=== PATIENT | female | born 1965 | race Caucasian/White ===

== ENCOUNTER 2016-03-14 10:47 | Emergency (ER) | payer BC | END 2016-03-14 11:07 | disposition left against medical advice (07) | LOC: UCEAST 10:47 | DX: Z53.21 Procedure and treatment not carried out due to patient leaving prior to being seen by health care provider (principal); M54.9 Dorsalgia, unspecified ==

== ENCOUNTER 2016-03-14 11:30 | Emergency (ER) | payer BC ==
[2016-03-14] MEDS ORDERED: Ketorolac INJ* 60 MG/2 ML VIAL IM ONE (12:16)
[2016-03-14] MEDS ORDERED: Cyclobenzaprine TAB* 10 MG PO ONE (12:16)
--- NOTE | 2016-03-14 13:00 | ED ---
Back Pain - HPI Summary HPI Summary: Patient presents with five days of back pain that began without known incident. The only thing she can think of, is that her big dog jumped on her and turned suddenly, but she does not relate that to a sudden onset of pain. Her pain radiates down her left leg and can make the bottom of her feet tingle. She had some similar symptoms on the right but they resolved. She denies numbness, incontinence of urine or stool, or trouble ambulating. She denies previous back injury or similar incidents. She has tried OTC medicine without relief. Heat helps temporarily. Her pain has gotten progressively worse over the week and can hurt when she coughs or sneezes. - History of Current Complaint Chief Complaint: EDBackInjuryPain Stated Complaint: LOWER BACK PAIN Time Seen by Provider: 03/14/16 11:35 Hx Obtained From: Patient, Family/Online Marketing Coordinator Hx Last Menstrual Period: post parker Onset/Duration: Gradual Onset Onset/Duration: Started Days Ago - 5 Timing: Constant Back Pain Location: Radiates To - left foot Severity Initially: Mild Severity Currently: Severe Pain Intensity: 8 Character: Sharp, Aching, Burning Aggravating Symptom(s): Movement Alleviating Symptom(s): Nothing Associated Signs And Symptoms: Positive: Tingling - bottom of left foot, Pain with Weight Bearing. Negative: Bladder Incontinence, Bowel Incontinence - Allergies/Home Medications Allergies/Adverse Reactions: Allergies Allergy/AdvReac Type Severity Reaction Status Date / Time Penicillins Allergy Unknown See Comment Verified 02/27/16 14:13 Amoxicillin Allergy Rash Verified 02/27/16 14:13 Kiwi Extract Allergy Difficulty Verified 02/27/16 14:13 Swallowing Ramelteon [From Rozerem] Allergy Headache Verified 02/27/16 14:13 Shellfish-derived Products Allergy Difficulty Verified 02/27/16 14:13 Breathing/Wheezing Sulfa Drugs Allergy Unknown Verified 02/27/16 14:13 Reaction Details PMH/Surg Hx/FS Hx/Imm Hx Endocrine/Hematology History: Reports: Hx Diabetes Cardiovascular History: Reports: Hx Hypertension Denies: Hx Pacemaker/ICD Respiratory History: Reports: Hx Asthma, Hx Chronic Obstructive Pulmonary Disease (COPD) History: Denies: Hx Renal Disease Musculoskeletal History: Reports: Other Musculoskeletal History - fibromyalgia, right shoulder pain Denies: Hx Arthritis, Hx Osteoporosis, Hx Scoliosis Sensory History: Denies: Hx Hearing Aid Neurological History: Reports: Hx Headaches, Hx Seizures, Other Neuro Impairments/Disorders - FIBROMYALIGIA Psychiatric History: Reports: Hx Anxiety - Some anxiety present. Denies depression., Hx Panic Disorder - ANXIETY - Cancer History Hx Chemotherapy: No Hx Radiation Therapy: No - Surgical History Surgery Procedure, Year, and Place: choly/appy/right knee x2/right carpal tunnel /hysterectomy Infectious Disease History: No Infectious Disease History: Denies: Hx Clostridium Difficile, Hx Hepatitis, Hx Human Immunodeficiency Virus (HIV), Hx of Known/Suspected MRSA, Hx Shingles, Hx Tuberculosis, Hx Known/ Suspected VRE, Hx Known/Suspected VRSA, History Other Infectious Disease, Traveled Outside the [place] in Last 30 Days - Family History Known Family History: Positive: None, Other - Positive breast CA - Social History Occupation: Unemployed Lives: With Family Alcohol Use: None Hx Substance Use: No Substance Use Type: Reports: None Hx Tobacco Use: Yes Smoking Status (MU): Former Smoker Type: Cigarettes Length of Time of Smoking/Using Tobacco: 34 years Have You Smoked in the Last Year: No Review of Systems Negative: Fever, Chills Negative: Chest Pain Negative: Shortness Of Breath Negative: Abdominal Pain Positive: no symptoms reported Positive: Myalgia. Negative: Edema Positive: Paresthesia. Negative: Headache, Weakness, Numbness All Other Systems Reviewed And Are Negative: Yes Physical Exam Triage Information Reviewed: Yes Vital Signs On Initial Exam: Initial Vitals Temp Pulse Resp BP Pulse Ox 96.8 F 72 16 154/90 98 03/14/16 11:31 03/14/16 11:31 03/14/16 11:31 03/14/16 11:31 03/14/16 11:31 Vital Signs Reviewed: Yes Appearance: Positive: Well-Appearing, Pain Distress, Obese Skin: Positive: Warm, Skin Color Reflects Adequate Perfusion, Dry, Soft Head/Face: Positive: Normal Head/Face Inspection Eyes: Positive: EOMI, DANNIELLE, Conjunctiva Clear ENT: Positive: Hearing grossly normal Neck: Positive: Supple, Nontender, No Lymphadenopathy Respiratory/Lung Sounds: Positive: Breath Sounds Present Cardiovascular: Positive: RRR Musculoskeletal: Positive: Strength/ROM Intact - movement with pain, but 5/5 strength against resistance at bilateral ankles, Pain @ - TTP bilateral SI joints, and lumbar spine. Negative: Suzanne Sign Left, Suzanne Sign Right Neurological: Positive: Sensory/Motor Intact, Alert, Oriented to Person Place, Time, NV Bundle Intact Distally, Abnormal Gait Psychiatric: Positive: Affect/Mood Appropriate AVPU Assessment: Alert Diagnostics - Vital Signs Vital Signs Temp Pulse Resp BP Pulse Ox 03/14/16 11:31 96.8 F 72 16 154/90 98 - Laboratory Lab Statement: Any lab studies that have been ordered have been reviewed, and results considered in the medical decision making process. - Radiology No standard instances Xray Interpretation: No Acute Changes Radiology Interpretation Completed By: Radiologist Back Pain Course/Dx - Diagnoses Differential Diagnosis/HQI/PQRI: Positive: Aneurysm, Cauda Equina Syndrome, Compressive Cord Syndrome, Herniated Disc, Strain, Sprain Provider Diagnoses: Low back strain Discharge - Discharge Plan Condition: Stable Disposition: HOME Prescriptions: Cyclobenzaprine TAB* [Flexeril TAB*] 10 mg PO TID PRN #15 tab PRN Reason: Pain oxyCODONE/Acetamin 5/325 MG* [Percocet 5/325 TAB*] 1 tab PO Q6H PRN #16 tab MDD 4 PRN Reason: Pain Patient Education Materials: Acute Low Back Pain (ED) Referrals: Daniel Kelly MD [Primary Care Provider] - Additional Instructions: Please use the medication provided in combination with head and rest. Follow-up with your PCP as scheduled on Thursday to discuss further treatment options. Return to the emergency department if your symptoms worsen.
[2016-03-14] MEDS ORDERED: oxyCODONE/Acetamin 5/325 MG* TAB PO ONE (13:14)
--- NOTE | 2016-03-14 13:55 | RAD ---
Indication: Low back pain radiating down the RIGHT leg into the foot. Decreased range of motion. History of fibromyalgia. Comparison: August 13, 2015 Technique: AP, lateral, and oblique views lumbar sacral spine. Report: Alignment is anatomic. No cortical disruption or trabecular impaction to indicate a vertebral body fracture. Oblique views without evidence for spondylolysis. Minimal osteophytosis. Mild L5-S1 disc space narrowing. Multilevel facet joint osteoarthritis most prominent at L5-S1. Unremarkable paraspinal soft tissue contours. Gallbladder fossa level surgical clips and pelvic phleboliths noted. IMPRESSION: Degenerative spondylosis and facet joint osteoarthritis most prominent at L5-S1 without significant interval change.
[2016-03-14 15:13] VITALS: BP 104/50
== END 2016-03-14 15:11 | disposition home or self-care (01) ==
LOC: ED 11:30
DX: S39.012A Strain of muscle, fascia and tendon of lower back, initial encounter (principal); M54.9 Dorsalgia, unspecified; R20.9 Unspecified disturbances of skin sensation; X50.9XXA Other and unspecified overexertion or strenuous movements or postures, initial encounter; X50.0XXA Overexertion from strenuous movement or load, initial encounter; Y93.9 Activity, unspecified; Y92.9 Unspecified place or not applicable; Y99.9 Unspecified external cause status
CPT/HCPCS: 72110; 96372; 99282; A9270-GY; J1885

== ENCOUNTER 2016-06-12 16:08 | Emergency (ER) | payer BC ==
[2016-06-12 16:41] VITALS: BP 143/93
--- NOTE | 2016-06-12 19:25 | ED ---
Ava Santoyo Alok, scribed for Hosea Garcia MD on 06/12/16 at 1658 . Progress - Progress Note Progress Note: Went to evaluate Cat-Call sent to ED for pseudo-seizure during MRI. Pt has no complaints and does not want to be seen by a physician. EKG unchanged from 2016 MRI shows negative results Pt refuses to be seen and will return home. - EKG/XRAY/CT EKG: NSR - 81 bpm Comments: Unchanged from 2016 Course/Dx - Course Course Of Treatment: Pt refuses to be seen and will return home. - Diagnoses Provider Diagnoses: Patient left without being seen The documentation as recorded by the Ava burton Alok accurately reflects the service I personally performed and the decisions made by me, Hosea Garcia MD.
== END 2016-06-12 16:49 | disposition left against medical advice (07) ==
LOC: ED 16:08
DX: R55 Syncope and collapse (principal); Z53.21 Procedure and treatment not carried out due to patient leaving prior to being seen by health care provider
CPT/HCPCS: 93005

== ENCOUNTER 2016-11-11 09:56 | Emergency (ER) | payer SELFPAY ==
[2016-11-11 10:11] VITALS: BP 158/104
--- NOTE | 2016-11-11 11:08 | RAD ---
Indication: RIGHT shoulder and clavicle pain following injury this morning. Comparison: April 12, 2009 radiographs. Technique: Internal rotation AP, external rotation Grashey, scapular Y, axillary views RIGHT shoulder. AP and cephalad oblique AP views of the RIGHT clavicle. Report: Incidental small bilateral C7 cervical ribs. Normal acromioclavicular and glenohumeral joint alignment. Unremarkable sternoclavicular joint alignment. Negative for fracture at the clavicle or shoulder. Mild osteophytosis and subchondral sclerosis and cystic change at the acromioclavicular joint. Negative for stigmata of calcific tendinopathy. Unremarkable soft tissue contours. IMPRESSION: 1. No radiographic traumatic injury of the RIGHT clavicle or shoulder evident. 2. Mild AC joint osteoarthritis.
--- NOTE | 2016-11-11 13:12 | UC ---
Wu Santoyo Angela, scribed for Anais Moseley MD on 11/11/16 at 1036 . Upper Extremity HPI - HPI Summary HPI Summary: This pt is a 51 y/o female presenting to [facility] c/o right shoulder pain s/p injury this morning. Pt reports she went to work today at [employer] and had to move boxes. She notes a box fell onto her, hitting her shoulder and the box got stopped by the door frame. She notes she has arthritis on her right shoulder. Pt states there is decreased ROM of right shoulder. She has taken Ibuprofen for the pain, last dose was today at 0815. - History of Current Complaint Chief Complaint: UCUpperExtremity Stated Complaint: SHOULDER INJURY Time Seen by Provider: 11/11/16 10:28 Hx Obtained From: Patient Hx Last Menstrual Period: post parker Onset/Duration: Sudden Onset - s/p injury Location Of Pain: Is Discrete @ - right shoulder Aggravating Factor(s): Movement, Flexion, Extension Alleviating Factor(s): Nothing Associated Signs And Symptoms: Positive: Redness - Allergies/Home Medications Allergies/Adverse Reactions: Allergies Allergy/AdvReac Type Severity Reaction Status Date / Time Penicillins Allergy Unknown Hives Verified 11/11/16 10:11 Amoxicillin Allergy Hives Verified 11/11/16 10:11 Kiwi Extract Allergy Throat Verified 11/11/16 10:11 closes Ramelteon [From Rozerem] Allergy Headache Verified 11/11/16 10:11 Shellfish-derived Products Allergy Throat Verified 11/11/16 10:11 closes Sulfa Drugs Allergy Hives Verified 11/11/16 10:11 PMH/Surg Hx/FS Hx/Imm Hx Endocrine History: Diabetes - type 2 Cardiovascular History: Hypertension Respiratory History: COPD, Asthma - Surgical History Surgical History: Yes Surgery Procedure, Year, and Place: choly/appy/right knee x2/right carpal tunnel /hysterectomy - Family History Known Family History: Positive: Other - Positive breast CA - Social History Alcohol Use: Rare Substance Use Type: None Smoking Status (MU): Former Smoker Type: Cigarettes Length of Time of Smoking/Using Tobacco: 34 years Have You Smoked in the Last Year: No When Did the Patient Quit Smoking/Using Tobacco: 2011 Review of Systems Constitutional: Negative Skin: Negative Eyes: Negative ENT: Negative Respiratory: Negative Cardiovascular: Negative Genitourinary: Negative Motor: Decreased ROM - of right shoulder Neurovascular: Negative Musculoskeletal: Other: - rghht shoulder pain Neurological: Negative All Other Systems Reviewed And Are Negative: Yes Physical Exam Triage Information Reviewed: Yes Appearance: Well-Nourished Vital Signs: Initial Vital Signs Temp 99.6 F 11/11/16 10:08 Pulse 83 11/11/16 10:08 Resp 18 11/11/16 10:08 BP 158/104 11/11/16 10:08 Pulse Ox 99 11/11/16 10:08 Vital Signs Reviewed: Yes Eye Exam: Normal ENT Exam: Normal Respiratory Exam: Normal Respiratory: Positive: Chest non-tender, Lungs clear, Normal breath sounds, No respiratory distress, No accessory muscle use Cardiovascular Exam: Normal Cardiovascular: Positive: RRR, No Murmur, Pulses Normal, Brisk Capillary Refill Abdominal Exam: Normal Abdomen Description: Positive: Nontender, No Organomegaly, Soft Bowel Sounds: Positive: Present Musculoskeletal: Positive: ROM Limited @ - right shoulder, Other: - Right clavicle: Neurological Exam: Normal - nonfocal, grossly intact Psychological Exam: Normal - conversing easily and appropriately Skin Exam: Normal - no visible or reported rash Diagnostics - Radiology Right Shoulder XR Xray Interpretation: Positive (See Comments) - IMPRESSION: 1. No radiographic traumatic injury of the RIGHT clavicle or shoulder evident. 2. Mild AC joint osteoarthritis. ED physician has reviewed this radiology report and agrees. Radiology Interpretation Completed By: Radiologist Right Clavicle XR Xray Interpretation: Positive (See Comments) - IMPRESSION: 1. No radiographic traumatic injury of the RIGHT clavicle or shoulder evident. 2. Mild AC joint osteoarthritis. ED physician has reviewed this radiology report and agrees. Radiology Interpretation Completed By: Radiologist Upper Extremity Course/Dx - Course Course Of Treatment: Pt declined analgesics at this time, will consider at time of discharge. Pt was given a sling for comfort. I-stop, REPAIR SPECIALIST reference #: [id number]. Reviewed xrays / xray report. Reviewed report with pt. No fx. + arthritis (see report). Suspect deep tissue (bony) contusion, with concomitant sprain (AC). Referral to orthopedics x 2 weeks. Reviewed and discussed analgesia / nsaid. Denies hx addiction. D/w pt usual narc talk. Questions as posed answered to the best of my ability. - Differential Dx/Diagnosis Provider Diagnoses: R shoulder contusion and sprain. Deep tissue contusion R shoulder Discharge - Discharge Plan Condition: Stable Disposition: HOME Prescriptions: HYDROcodone/ACETAMIN 5-325 MG* [Madison 5-325 TAB*] 1 tab PO Q6H PRN #16 tab MDD 4 PRN Reason: Pain Naproxen [Naproxen 500 mg] 500 mg PO Q12H PRN #30 tab PRN Reason: pain Patient Education Materials: Acromioclavicular Separation (ED), Osteoarthritis (ED), Contusion in Adults (ED) Referrals: Daniel Kelly MD [Primary Care Provider] - Additional Instructions: Shoulder sling as needed for comfort. Recommend during the day at least for the next 3 days, you may need to use the sling longer depending on your pain and range of motion. Follow up cardiovascular disease specialist in 2 weeks. Please call to schedule appointment. Seek medical attention for worse or new problems in the meantime. Follow up Dr. Kelly per routine. You do have joint arthritis, I suspect concomitant possible AC sprain. ( acromial clavicular = AC) The documentation as recorded by the Wu burton Angela accurately reflects the service I personally performed and the decisions made by me, Anais Moseley MD.
== END 2016-11-11 11:58 | disposition home or self-care (01) ==
LOC: UCEAST 09:56
DX: S43.401A Unspecified sprain of right shoulder joint, initial encounter (principal); S40.012A Contusion of left shoulder, initial encounter; W20.8XXA Other cause of strike by thrown, projected or falling object, initial encounter; Y93.89 Activity, other specified; Y92.9 Unspecified place or not applicable; Y99.0 Civilian activity done for income or pay
CPT/HCPCS: 99213; G0463

== ENCOUNTER 2017-01-20 06:42 | Inpatient (IN) | payer BC ==
[~2017-01-20 06:42] MED LIST: Buffered Lidocaine 0.9% SYRIN* 5 ML/SYR SYRINGE INTRADERM ONE; Buffered Lidocaine 0.9% SYRIN* 5 ML/SYR SYRINGE ONE; Ciprofloxacin 400MG IVPREMIX(* 400 MG/200 ML BAG ONE; Clindamycin 900 MG IVPREMIX(* 900 MG/50 ML SDV IV ONE; Dexamethasone IV* 4 MG/ML 1 ML (4 MG) IV SLOW PU ONE; Dexamethasone IV* 4 MG/ML 1 ML (4 MG) ONE; Famotidine IV* 10 MG/ML 2 ML (20 mg) IV ONE; Famotidine IV* 10 MG/ML 2 ML (20 mg) ONE; Heparin VIAL(*) 5000 UNITS/ML VIAL (FIVE THOUSAND) ONE; Scopolamine 1.5 mg* PATCH ONE; Scopolamine 1.5 mg* PATCH TRANSDERM ONE
[2017-01-20] MEDS ORDERED: Methylene Blue 0.5 %* 50 MG/10 ML AMP IV ONE (07:13)
[2017-01-20] MEDS ORDERED: Bupivacaine 0.25% SDV* 30 ML ONE (07:13)
[2017-01-20] MEDS ORDERED: Midazolam* 1 MG/ML 2 ML VIAL (2 MG) ONE ×2 (07:42→08:05)
[2017-01-20] MEDS ORDERED: fentaNYL* 50 MCG/ML 2 ML VIAL (100 MCG VIAL) ONE ×2 (07:42→07:57)
[2017-01-20] MEDS ORDERED: Propofol* 500 MG/50 ML BTL ONE ×3 (07:47→09:22)
[2017-01-20] MEDS ORDERED: Lidocaine 2% PF * 5 ML VIAL ONE (07:47)
[2017-01-20] MEDS ORDERED: Rocuronium* 10 MG/ML VIAL ONE (07:51)
[2017-01-20] MEDS ORDERED: Remifentanil* 2 MG VIAL ONE (07:56)
[2017-01-20] MEDS ORDERED: Morphine INJ* 2 MG/ML 1 ML CARPUJECT IV PRN (08:36)
[2017-01-20] MEDS ORDERED: PROCHLORPERAZINE INJ 5 MG/ML 2 ML VIAL IV PRN (08:36)
[2017-01-20] MEDS ORDERED: fentaNYL* 50 MCG/ML 2 ML VIAL (100 MCG VIAL) IV PRN (08:36)
[2017-01-20] MEDS ORDERED: Acetaminophen IV 1GM/100ML * 1,000 MG/100 ML VIAL IVPB ONE (08:36)
[2017-01-20] MEDS ORDERED: EPHEDrine (Pressors)* 50 MG/ML VIAL ONE (09:11)
[2017-01-20] MEDS ORDERED: Ondansetron INJ* 2 MG/ML VIAL ONE (09:49)
[2017-01-20] MEDS ORDERED: Acetaminophen IV 1GM/100ML * 100 ML ONE (10:04)
[2017-01-20] MEDS ORDERED: Ondansetron INJ* 2 MG/ML VIAL IV PRN (10:10)
[2017-01-20] MEDS ORDERED: Glycopyrrolate IV* 0.2 MG/ML 1 ML VIAL ONE (10:11)
[2017-01-20] MEDS ORDERED: Neostigmine Methylsulfate* 2 MG/2 ML SYRINGE ONE (10:11)
[2017-01-20] MEDS ORDERED: Fluticasone HFA 220 mcg(NF) MDI INH PRN (10:15)
[2017-01-20] MEDS ORDERED: Spiriva Inhaler DEVICE* 1 EACH DEVICE INH PRN (10:15)
[2017-01-20] MEDS ORDERED: Dextrose 50% Syringe 50 ML* 25 GM/50 ML SYRINGE IV PUSH PRN (10:16)
--- NOTE | 2017-01-20 10:20 | PN ---
Progress Note - Progress Note Date of Service: 01/20/17 Note: Brief Operative Note: Pre-op: Morbid obesity Post-op: Same Procedure: Laparoscopic John-en-Y gastric bypass Surgeon: Dr. Arellano Sports Physiotherapist: DENZEL Hunter Tamara: GETA Fluids: NS 1500 cc EBL: Minimal Catheter: Pemberton to gravity Drain: None Specimen: None Findings: See dictated op note
[2017-01-20] MEDS ORDERED: Propofol* 10 MG/ML 20 ML BTL IV PUSH ONE (10:31)
[2017-01-20] MEDS ORDERED: Ketorolac INJ* 30 MG/ML 1 ML VIAL IV PUSH ONE (11:09)
[2017-01-20] MEDS ORDERED: Ketorolac INJ* 30 MG/ML 1 ML VIAL ONE (11:10)
[2017-01-20] MEDS: Insulin LISPRO* 1 UNITS UNIT SUBCUT SCH ×2 (13:30→18:45)
[2017-01-20] MEDS ORDERED: HYDROmorphone INJ* 2 MG/ML CARPUJECT SYRINGE ONE (14:33)
[2017-01-20] MEDS: HYDROmorphone INJ* 2 MG/ML CARPUJECT SYRINGE IV PRN ×3 (14:35→21:57)
[2017-01-20] MEDS ORDERED: Mometasone 220 MCG MDI INH PRN (14:47)
[2017-01-20] MEDS: Pantoprazole IV* 40 MG IV SCH (15:30)
[2017-01-20] MEDS: Ketorolac INJ* 30 MG/ML 1 ML VIAL IV PRN (17:44)
[2017-01-20] MEDS: Heparin VIAL(*) 5000 UNITS/ML VIAL (FIVE THOUSAND) SUBCUT SCH (22:03)
[2017-01-21] MEDS: Insulin LISPRO* 1 UNITS UNIT SUBCUT SCH ×5 (00:02→23:57)
[2017-01-21] MEDS: Heparin VIAL(*) 5000 UNITS/ML VIAL (FIVE THOUSAND) SUBCUT SCH ×3 (05:41→22:16)
[2017-01-21] MEDS: HYDROmorphone INJ* 2 MG/ML CARPUJECT SYRINGE IV PRN (06:51)
--- NOTE | 2017-01-21 08:23 | SURGPN ---
Subjective - Introduction -: Admitted on: 01/20/2017 Patient's surgical date: 01/20/2017 Procedure completed: 01/20/2017 - Medications -: Active Medications Generic Name Dose Route Start Last Admin Trade Name Gregoria PRN Reason Stop Dose Admin Device 1 each 01/20/17 10:15 Tiotropium Inhaler Device* INH DAILY PRN WHEEZING Dextrose 12.5 gm 01/20/17 10:16 D50w Syringe 50 Ml* IV PUSH .FOR FS < 60 - SS PRN FS < 60 Heparin Sodium (Porcine) 5,000 units 01/20/17 22:00 01/21/17 05:41 Heparin Vial(*) SUBCUT 5,000 units Q8HR [facility] Administration Hydromorphone HCl 0.5 mg 01/20/17 10:10 01/21/17 06:51 Dilaudid Inj* IV 0.5 mg Q3H PRN Administration PAIN Potassium Chloride/Dextrose 1,000 mls @ 125 mls/hr 01/21/17 07:30 D5w 1/2 Ns Kcl 20 Meq 1000 Ml* IV PER RATE [facility] Insulin Human Lispro 0 units 01/20/17 12:00 01/21/17 05:42 Humalog* SUBCUT Not Given Q6HR [facility] Protocol Ketorolac Tromethamine 30 mg 01/20/17 10:10 01/20/17 17:44 Toradol Inj* IV 01/22/17 10:12 30 mg Q6H PRN Administration PAIN Mometasone Furoate 2 puff 01/20/17 14:47 Asmanex 220 Mcg Mdi * INH BID PRN SOB/WHEEZING Ondansetron HCl 4 mg 01/20/17 10:10 01/20/17 15:35 Zofran Inj* IV 4 mg Q6H PRN Administration NAUSEA/VOMITING Pantoprazole Sodium 40 mg 01/20/17 15:00 01/20/17 15:30 Protonix Iv* IV 40 mg Q24H [facility] Administration Pharmacy Profile Note 1 note 01/23/17 06:00 Scopolamine Patch Remove* PATCH OFF 01/23/17 06:01 ONCE ONE - Comments Comments: Reports doing well, minimal incisional pain. Denies nausea, vomiting, fever or chills. No chest pain or SOB. Objective - Objective -: Laying on bed, awake and alert, appears comfortable and in NAD. - Intake and Output -: Intake & Output 01/19/17 01/20/17 01/21/17 01/22/17 06:59 06:59 06:59 06:59 Intake Total 3901 Output Total 1934 Balance 1966 Weight 190 lb 200 lb 9.93 oz Intake: IV Fluids 3901 LR 3901 Output: Mathis 1835 Estimated Blood Loss 100 Surgical Physical Exam - Comments -: VSS, afebrile, no tachycardia Lungs CTA bilat. Heart RRR, no murmurs. Abdomen soft, NT, ND. Incisions covered with dressings, clean and dry. No ecchymosis, erythema or swelling. Mathis with clear urine, I/Os reviewed. Ext. without edema Assessment and Plan - Assessment -: A 51 y/o female, POD#1, s/p laparoscopic RYGB, doing well. - Plan Additional Comments: D/C mathis catheter Ambulate as tolerated Stage I bariatric clear liquids Transfer to [facility] Likely home in AM 01/22
[2017-01-21] MEDS ORDERED: Acetaminophen ADULT LIQ* 650 MG/20.3 ML UDC PO PRN (08:30)
--- NOTE | 2017-01-21 08:48 | OP ---
CC: Daniel Kelly MD * DATE OF OPERATION: 01/20/17 - ROOM #ICU-09 DATE OF : 63 SURGEON: Kalin Arellano MD. SECTION CREWS ACTIVITIES CLERK: DENZEL Rao. ANESTHESIOLOGIST: Diego Pineda MD. ANESTHESIA: General endotracheal. PRE-OP DIAGNOSIS: Morbid obesity. POST-OP DIAGNOSIS: Morbid obesity. OPERATIVE PROCEDURE: Laparoscopic John-en-Y gastric bypass. ESTIMATED BLOOD LOSS: Minimal. IV FLUIDS: Crystalloids. SPECIMENS: None. DRAINS: None. COMPLICATIONS: None. COUNTS: The instrument, needle, and sponge counts correct. DESCRIPTION OF PROCEDURE: The patient was brought to the operating room and placed on the table supine. Sequential compression devices were placed on both lower extremities. General anesthesia was administered. A Pemberton catheter was placed. Appropriate antibiotics were given. The patient was positioned and padded appropriately and then prepped and draped in the usual sterile fashion. A time-out was performed. Local anesthetic was infiltrated into the skin and soft tissue prior to making each incision. Entry to the abdomen was through a left upper quadrant incision accommodating a 12-mm optical trocar. After accessing the peritoneal cavity, carbon dioxide was insufflated to a pressure of 15 mmHg. Under direct visualization, 5-mm trocars were placed in the left upper quadrant laterally and then LigaSure was used to take down the adhesions of omentum that were to the midline and right upper quadrant as the patient had a prior open cholecystectomy. After completing the adhesiolysis, 12-mm bladeless trocar was placed in the supraumbilical midline and the second placed in the right upper quadrant. A 5-mm trocar was placed in the right upper quadrant medially and a Efrain liver retractor was placed percutaneously in the subxiphoid position and used to elevate the left lobe of the liver. Gastric anatomy appeared normal. The gastric cardia was mobilized away from the left jeremy of the diaphragm using blunt dissection with a LigaSure. Next, a perigastric dissection was undertaken on the lesser curvature. The lesser sac was entered and transverse firings of the Endo RACHAEL stapler was performed with vidal cartridge. The gastric pouch was then completed with vertical firings headed towards the angle of His. After completing the division of the stomach pouch, staple lines were inspected and noted to be hemostatic. Next, the omentum was freed from the lower abdomen by LigaSure, which was used to divide the adhesions in the lower midline. The omentum was retracted superiorly along with the transverse colon and the ligament of Treitz was identified. The jejunum was measured out 40 to 50 cm and the loop of jejunum was sutured to the left side of the gastric pouch with 2-0 silk in interrupted fashion. Next, the gastrojejunal anastomosis was performed using the Endo RACHAEL stapler with 30 mm vidal cartridge and the common enterotomy was run closed with 3-0 PDS, with the closure performed over a 36-Belarusian gastric lavage tube. To complete the anastomosis, the omega loop was divided to the left of the anastomosis and then the anastomosis was tested with methylene blue dye solution instilled through the orogastric tube. No leak was identified. Next, the John limb was measured out for 75 cm and at this point a functional end-to-side jejunojejunostomy was created using the Endo RACHAEL stapler with a 60-mm vidal cartridge. The common enterotomy was run closed with 3-0 PDS. An anti-obstruction sutures of 3-0 silk were placed proximally and distally to the anastomosis. The mesenteric defect at this site was closed with 3-0 silk in a running locking fashion. Inspection revealed hemostasis to be excellent. The bowel was noted to be in proper position. The operation was concluded. The liver retractor and ports were removed under direct visualization. Carbon dioxide was released. The incisions were closed with pearl. The dressings were applied. The patient was extubated uneventfully, transferred to Recovery in stable condition. [id number]/[facility] #: [id number] [facility]QUARE HOSPITALJulio Cesar
--- NOTE | 2017-01-21 09:13 | PN ---
Progress Note - Progress Note Date of Service: 01/21/17 Note: She reports feeling well. Pain is well controlled, she just started clears, and she is going to transfer to [facility]. We discussed surgical findings. Cirrhotic appearance of the liver explained and she notes she had a biopsy 20 years ago that showed fatty liver. I explained she will be referred to liver specialist for a follow up, but this is not urgent. Vital Signs Temp 97.6 F 01/21/17 04:00 Pulse 69 01/21/17 09:01 Resp 22 01/21/17 09:01 BP 119/88 01/21/17 09:01 Pulse Ox 96 01/21/17 09:01 Intake & Output 01/20/17 01/21/17 01/21/17 18:59 06:59 18:59 Intake Total 2100 1801 Output Total 435 1500 Balance 1665 301 Weight 200 lb 9.93 oz Intake: IV Fluids 2100 1801 LR 2100 1801 Output: Pemberton 335 1500 Estimated Blood Loss 100 Laboratory Results - last 24 hr 01/20/17 01/20/17 01/20/17 06:59 11:12 17:48 POC Glucose (mg/dL) 123 H 148 H 152 H 01/20/17 01/21/17 23:58 05:39 POC Glucose (mg/dL) 125 H 101 H A/P: s/p LRYGB; liver bx. POD#1. Doing well. Cont clears. Po meds. Home tomorrow.
[2017-01-21] MEDS: D5W 1/2 NS KCl 20 Meq 1000 ML* 1,000 ML IV SCH ×2 (10:33→18:30)
[2017-01-21] MEDS: Pantoprazole IV* 40 MG IV SCH (13:15)
[2017-01-21] MEDS: HYDROcodone/ACET. 7.5/325 LIQ* 15 ML UDC PO PRN (14:50)
[2017-01-21] MEDS: Ketorolac INJ* 30 MG/ML 1 ML VIAL IV PRN ×2 (14:52→19:52)
[2017-01-21] MEDS ORDERED: PARoxetine HCL TAB* 40 MG PO SCH (18:00)
[2017-01-22] MEDS: D5W 1/2 NS KCl 20 Meq 1000 ML* 1,000 ML IV SCH (02:28)
[2017-01-22] MEDS: HYDROcodone/ACET. 7.5/325 LIQ* 15 ML UDC PO PRN ×2 (02:29→09:43)
[2017-01-22] MEDS: Heparin VIAL(*) 5000 UNITS/ML VIAL (FIVE THOUSAND) SUBCUT SCH (05:41)
[2017-01-22] MEDS: Insulin LISPRO* 1 UNITS UNIT SUBCUT SCH (05:45)
[2017-01-22 07:38] VITALS: BP 127/68
--- NOTE | 2017-01-22 09:56 | PN ---
Progress Note - Progress Note Date of Service: 01/22/17 SOAP: Subjective: Pt seen and examined. Feels "better" than yesterday. No complaints. No nause , tolerating clears, positive flatus Objective: af vss UO great lungs clear abdo: soft/ ND/NT dressing removed. no redness no claf tenderness Assessment: POD2 RYGB, doing well Plan: d/c home f/u in office
[2017-01-23] MEDS ORDERED: Scopolamine PATCH Remove* 1 NOTE MISC PATCH OFF ONE (06:00)
== END 2017-01-22 11:00 | disposition home or self-care (01) | DRG 403 ==
LOC: AA 06:42 → SSU 13:13 → ICU 18:26 → SSU 01-21 10:31
PROVIDERS: ADMIT Surgery; ATTEND Surgery
PROC: 0D164ZA Bypass Stomach to Jejunum, Percutaneous Endoscopic Approach (ICD-10-PCS; principal; 2017-01-20 07:45)
DX: E66.01 Morbid (severe) obesity due to excess calories (principal); K76.0 Fatty (change of) liver, not elsewhere classified; E11.9 Type 2 diabetes mellitus without complications; G47.33 Obstructive sleep apnea (adult) (pediatric); J44.9 Chronic obstructive pulmonary disease, unspecified; E78.5 Hyperlipidemia, unspecified; I10 Essential (primary) hypertension; Z68.35 Body mass index [BMI] 35.0-35.9, adult
CPT/HCPCS: 43644; 88307; 88313; 94760; A9270-GY; C1776; J0744; J1100; J1170; J1644; J1885; J2250; J2405; J2704; J3010

== ENCOUNTER 2017-02-02 09:10 | Emergency (ER) | payer BC ==
[2017-02-02] MEDS ORDERED: Ondansetron ODT TAB* 4 MG PO ONE (09:50)
[2017-02-02] MEDS ORDERED: NS 0.9% 1000 ML* 1,000 ML IV ONE (09:50)
[2017-02-02] MEDS ORDERED: Morphine INJ* 4 MG/ML 1 ML CARPUJECT IV ONE (09:50)
[2017-02-02 10:09] LABS: Hematocrit 40 % (35-47); Hemoglobin 13.8 g/dl (12.0-16.0); Mean Corpuscular HGB Conc 35 g/dl (31-36); Mean Corpuscular Hemoglobin 30 pg (27-31); Mean Corpuscular Volume 86 fL (80-97); Mean Platelet Volume 9 um3 (7.4-10.4); Red Blood Count 4.67 10^6/ul (4.0-5.4); Red Cell Distribution Width 13 % (10.5-15)
[2017-02-02 10:23] LABS: Albumin 3.9 g/dL (3.2-5.2); BUN/Creatinine Ratio 26.2 (8-20); C Reactive Protein 5.28 mg/L (< 5.00); Calcium 9.8 mg/dL (8.6-10.3); EGFR African American 123.1 (>60); EGFR Non-African American 95.7 (>60); Globulin 2.8 g/dL (2-4); Potassium 3.9 mmol/L (3.5-5.0); Total Bilirubin 0.6 mg/dL (0.2-1.0); Total Protein 6.7 g/dL (6.4-8.9)
[2017-02-02] MEDS ORDERED: Iodixanol* (CONTRAST) 320 MG/ML 100 ML SDV IV ONE (10:52)
--- NOTE | 2017-02-02 12:28 | RAD ---
INDICATION: RIGHT upper quadrant pain radiating to the back. 13 days postop gastric bypass and liver biopsy. Post cholecystectomy, appendectomy, hysterectomy. COMPARISON: September 01, 2016 RIGHT upper quadrant ultrasound. March 06, [address] TECHNIQUE: Multidetector CT images were obtained from the lung bases to the ischial tuberosities with 100 mL Visipaque 320 IV and oral contrast. Multiplanar reformation. REPORT: Unremarkable visualized inferior thorax. Post cholecystectomy. Negative for biliary dilatation. 1.5 cm hypodense but denser than water lesion at the caudal aspect of the LEFT lateral hepatic segment. Unremarkable pancreas and spleen. Postsurgical change of John-en-Y gastric bypass with the John limb passing cephalad anterior to the transverse colon. Mild fluid distention of the excluded stomach without suspicious finding. No CT abnormality of the small bowel loops. Post appendectomy. Unremarkable largely decompressed colon. Negative for ascites, free air, hernias. Mild edema at the anterior abdominal wall trocar sites. Normal adrenal glands. Unremarkable kidneys with symmetric nephrograms and pyelograms. Unremarkable nondilated ureters and largely decompressed urinary bladder. Post hysterectomy. Unremarkable adnexal regions. Negative for lymphadenopathy. Normal diameter abdominal aorta and iliac arteries. Physiologic distention of the IVC. Negative for suspicious osseous lesions. IMPRESSION: 1. Noted 1.5 cm hypodense but denser than water lesion at the caudal aspect of the LEFT lateral hepatic segment is low suspicion based on small size. This may represent sequela of recent surgical hepatic biopsy. Correlate with procedural history. If the lesion remains unexplained after clinical correlation further assessment with targeted ultrasound would be suggested. 2. Postsurgical change of John-en-Y gastric bypass without visible complication. 3. Negative for ascites. 4. Negative for obstructive uropathy.
[2017-02-02] MEDS ORDERED: Ondansetron INJ* 2 MG/ML VIAL IV ONE (13:27)
[2017-02-02 13:49] VITALS: BP 116/64
[2017-02-02 13:55] LABS: Urine Bacteria Absent (Absent); Urine Bilirubin Negative (Negative); Urine Glucose Negative (Negative); Urine Nitrite Negative (Negative)
[2017-02-02] MEDS ORDERED: HYDROmorphone INJ* 2 MG/ML CARPUJECT SYRINGE IV SLOW PU ONE (14:02)
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
== END 2017-02-02 15:01 | disposition home or self-care (01) ==
LOC: ED 09:10
DX: R10.11 Right upper quadrant pain (principal); M79.602 Pain in left arm
CPT/HCPCS: 36415; 74177; 80053; 81003; 81015; 83690; 85025; 85610; 85730; 86140; 86850; 86900; 86901; 93005; 99283; A9270-GY; J1170; J2270; J2405; Q9967

== ENCOUNTER 2017-10-30 19:34 | Emergency (ER) | payer BC ==
[2017-10-30 19:42] VITALS: BP 131/74
== END 2017-10-30 19:58 | disposition left against medical advice (07) ==
LOC: ED 19:34
DX: E16.2 Hypoglycemia, unspecified (principal); Z53.21 Procedure and treatment not carried out due to patient leaving prior to being seen by health care provider

== ENCOUNTER 2017-11-16 08:54 | Observation (INO) | payer BC ==
[2017-11-16] MEDS ORDERED: Dextrose 50% Syringe 50 ML* 25 GM/50 ML SYRINGE IV PUSH ONE (09:42)
[2017-11-16] MEDS ORDERED: D5NS 0.9% 1000 ML BAG* 1,000 ML IV SCH (10:00)
[2017-11-16 10:24] LABS: EGFR Non-African American 129.1 (>60)
--- NOTE | 2017-11-16 11:22 | HP ---
CC: Dr. Kelly; Dr. Archibald; Dr. Valdivia * HISTORY AND PHYSICAL: DATE OF ADMISSION: 11/16/17 PRIMARY CARE PROVIDER: Dr. Kelly. ARMATURE BANDER: Dr. Archibald. SUPERVISOR POLICY CHANGE CLERKS: Dr. Valdivia. CHIEF COMPLAINT: Hypoglycemia and the patient needs to be n.p.o. for a scheduled endoscopy. HISTORY OF PRESENT ILLNESS: Chuck Jackson is a 52-year-old female with a history of obesity, status post gastric bypass surgery in December of 2016, who subsequently lost 80 pounds of weight and developed hypoglycemia. The patient would have sugars in the 40s in the middle of the night. For that, she was evaluated by Dr. Archibald. Dr. Archibald noted that the patient has had problems with eating and referred the patient for upper endoscopy. The patient is scheduled for upper endoscopy today with Dr. Valdivia but she needs to be n.p.o. for the procedure. There was a concern that the patient may be hypoglycemic while n.p.o. due to her history of hypoglycemia. The patient was advised to go for direct admission prior to the planned procedure. Today, in the morning, the patient presented for direct admission. She feels overall "weak," but she has no complaints of feeling cold or chills. No history of recent syncope. She did not check her sugars today in the morning, but when we checked it up on her arrival, her sugar was 64. She is going to be placed on observation prior to her endoscopy. Likely after the endoscopy and resumption of her regular diet, the patient will be able to be discharged today. PAST MEDICAL HISTORY: 1. History of gastric bypass surgery in 2017. 2. History of impaired gastric emptying in 2018. 3. History of cirrhosis of the liver diagnosed via biopsy in 2017. It is unknown the etiology of the cirrhosis. 4. History of COPD. 5. History of anxiety. 6. History of conversion disorder. 7. History of gastroesophageal reflux disease. 8. History of mild cognitive disorder. 9. History of diabetes, type 2, that resolved after the patient's gastric bypass. 10. History of hypertension that resolved after the patient's gastric bypass. MEDICATIONS: At home, include: 1. Vitamin B12 of 1000 mcg daily. 2. Flovent 220 mcg 1 inhalation twice a day. 3. Lorazepam 0.5 mg on a p.r.n. basis. 4. Multivitamin 1 tablet daily. 5. Paroxetine 40 mg daily. 6. Spiriva 1 inhalation daily. 7. Vitamin D3 2000 units daily. ALLERGIES: Include AMOXICILLIN, MORPHINE, ROZEREM. SHELLFISH causes anaphylaxis. SULFA caused hives. FAMILY HISTORY: Father with history of hypertension, heart disease, and leukemia. Mother with history of heart disease. There is history of colon cancer in paternal uncle. SOCIAL HISTORY: The patient is a law secretary. She denies any current smoking. Please note that the patient quit smoking in 2011. Denies any alcohol or drug use. She lives with her , who is her surrogate. REVIEW OF SYSTEMS: The patient stated that she lost 80 pounds of weight after her bypass in 2017. She notes early satiety and troubles with nausea after she eats. She also stated that she is frequently constipated. Denies abdominal pain. In regards to urinary symptoms, the patient has a history of recent urinary frequency but no dysuria. The patient denies any shortness of breath, but occasionally she wheezes and she uses inhaler. Once again, no current wheezing reported. The patient denies any chest pain. She denies any leg edema. Her weight has been slowly and continuously decreasing. All the remaining 12 systems were reviewed with the patient and were otherwise negative. PHYSICAL EXAMINATION GENERAL: The patient is a very pleasant 52-year-old female, who is in no acute distress. Alert, awake, and oriented x3. VITAL SIGNS: Please note that the patient vitals are still pending at the time of dictation and are available to be viewed in the electronic medical records. HEENT: Head: Normocephalic, atraumatic. Eyes: Pupils are equal, round, and reactive to light and accommodation. Oropharynx clear. Mucosa moist. NECK: Supple. No JVD. No bruits bilaterally. RESPIRATORY: Clear to auscultation bilaterally. CARDIOVASCULAR: Regular rate and rhythm. No murmur. ABDOMEN: Soft, nontender. Bowel sounds are present in all 4 quadrants. EXTREMITIES: There is no edema. Pulses are +2 bilaterally. No clubbing or cyanosis. NEUROLOGIC: Speech is clear. Cranial nerves II through XII grossly intact. Motor strength is 5/5 bilaterally. PSYCHIATRIC: Oriented x3, pleasant and cooperative with evaluation with no evidence of anxiety or depression. LABORATORY DATA: Current laboratory data is pending at the time of dictation. On 11/12/17, the patient's sodium was 142, potassium of 4.3, chloride 107, carbon dioxide 30, BUN 17, and creatinine 0.58. At that point, the patient's glucose level was 105. Currently, the patient's glucose level is 64. ASSESSMENT AND PLAN: 1. Chuck Jackson is a 52-year-old female status post gastric bypass surgery in 2017, who presents for elective upper endoscopy. The patient is n.p.o. and she has a history of recurrent hypoglycemia. Due to that, she is going to be placed on observation on the 5% dextrose infusion. We will start D5 normal saline at 100 mL an hour. We will keep on checking the patient's sugars every 2 hours until the patient's procedure is done. After the patient's endoscopy, if she is okay to eat by her foreign exchange clerk, she likely will be able to be discharged later on today. 2. In regards to the patient's chronic obstructive pulmonary disease, the patient is not in exacerbation. No treatment for the time being is necessary. 3. In regards to the DVT prophylaxis, the patient is low risk and ambulation is going to be encouraged. TIME SPENT: Approximately 55 minutes was spent on admission of this patient, more than half of that time was spent [id number] with the patient during the interview and physical exam. [id number]/[facility] #: [id number] ANAMARIA
[2017-11-16] MEDS ORDERED: Midazolam* 1 MG/ML 10 ML VIAL (10 MG) ONE (14:09)
[2017-11-16] MEDS ORDERED: fentaNYL* 50 MCG/ML 2 ML VIAL (100 MCG VIAL) ONE (14:09)
--- NOTE | 2017-11-16 15:45 | PRO ---
DATE OF PROCEDURE: 11/16/2017 - ROOM #420 PROCEDURE PERFORMED: EGD. INDICATION: Symptomatic hypoglycemia, abdominal pain. MEDICATIONS GIVEN: 75 mcg IV Fentanyl and 9 mg IV Versed. PROCEDURE: After the EGD procedure, including the risks, benefits, and alternatives, not limited to perforation, surgery and/or were explained to Ms. Jackson, written consent was then obtained. IV medication was given and a bite-block was placed between the teeth. An Olympus gastroscope was then inserted into the patient's mouth, advanced down the esophagus, into the stomach , and into the distal duodenum. In the esophagus at the GE junction, the Z- line was intact; however, she did have what appeared to be numerous rings throughout the entirety of the esophagus and potentially some cobblestoning, potentially consistent with eosinophilic esophagitis. Biopsies were obtained. The scope was advanced through the GE junction and into the body of the stomach. No stricture or ring was seen. She does have a gastric pouch. The pouch appeared normal size. The scope was advanced through a widely patent gastrojejunal anastomosis. No strictures or rings were seen. She does have suture material, but no ulcerations were seen. The scope was advanced into the jejunum. No abnormalities were seen. The scope was then withdrawn from the patient. She tolerated the procedure well and was returned to the recovery room in stable condition. IMPRESSION: 1. Complete upper endoscopy into the distal duodenum with biopsies. 2. Biopsies for eosinophilic esophagitis. 3. No gastrojejunal anastomotic stricture. 4. No ulcers. I will follow up on all the biopsies and report back to the patient at that time. [id number]/[facility] #: [id number] ANAMARIA
[2017-11-16 16:23] VITALS: BP 102/53
[2017-11-16 17:47] LABS: Urine Appearance Clear; Urine Blood Negative (Negative); Urine Color Yellow; Urine Ketones Negative (Negative); Urine Protein Negative (Negative); Urine Specific Gravity 1.011 (1.010-1.030); Urine Urobilinogen Negative (Negative)
--- NOTE | 2017-11-16 22:25 | CONS ---
CONSULTATION REPORT: DATE OF CONSULTATION: 11/16/17 REQUESTING PHYSICIAN: Dr. Archibald. INDICATION: Abdominal pain. NARRATIVE: Mrs. Jackson is a 52-year-old female, who underwent a John-en-Y gastric bypass surgery in December of 2016. She tells me at that time, she developed abdominal pain. She has had a right upper quadrant ultrasound that has been unremarkable. She has also developed severe symptomatic hypoglycemia and was admitted today by her primary care physician, Dr. Archibald for further workup. She does feel weak. No fevers or chills. She denies any nonsteroidal. No black and tarry stools. No vomiting of blood. PAST MEDICAL HISTORY: Significant for COPD, anxiety, conversion disorder, GERD , type 2 diabetes that has resolved with bypass, hypertension that has resolved with bypass, a history of cirrhosis. MEDICATIONS: Include: 1. Vitamins. 2. Spiriva. 3. Paroxetine. 4. Lorazepam. ALLERGIES: MORPHINE and AMOXICILLIN. FAMILY HISTORY: Coronary artery disease, hypertension, leukemia. SOCIAL HISTORY: She denies any tobacco. She quit smoking approximately 6 years ago. No alcohol abuse. REVIEW OF SYSTEMS: Twelve-systems were reviewed, other than that mentioned in the HPI were unremarkable. PHYSICAL EXAM: On physical exam, temperature is 97.3, blood pressure is 118/77 , pulse of 61, respiratory rate of 12, O2 sat of 99%. General: A well- appearing female, in no apparent distress. Alert, oriented, pleasant, and fluent. HEENT: Mucous membranes are moist without lesions, ulcers, or exudate. Neck is supple. Trachea is midline. Head is normocephalic, atraumatic. Heart : Regular rate and rhythm. Lungs: Clear to auscultation. Abdomen: Positive bowel sounds, soft, nontender, and nondistended. No hepatosplenomegaly, masses , rebound or guarding. Skin: Warm and dry. DIAGNOSTIC STUDIES/LAB DATA: Labs of note, her creatinine is 0.5. Her glucose is 108. Sodium is 140. ASSESSMENT AND PLAN: This is a pleasant 52-year-old female, who underwent a John- en-Y gastric bypass surgery approximately a year ago. She has pain and symptomatic hypoglycemia. We will perform an upper endoscopy to evaluate for any anastomotic strictures or ulcers. [id number]/[facility] #: [id number] [facility]
--- NOTE | 2017-11-17 14:52 | DS ---
CC: Dr. Kelly; Dr. Valdivia * DISCHARGE SUMMARY: DATE OF ADMISSION: 11/16/17 DATE OF DISCHARGE: 11/16/17 DISCHARGE DIAGNOSES: 1. Status post esophagogastroduodenoscopy. 2. History of hypoglycemia. MEDICATIONS AT DISCHARGE: Unchanged from admission, include: 1. Multivitamin 1 tablet daily. 2. Paxil 40 mg daily. 3. Spiriva 1 puff inhalation daily. 4. Lorazepam 0.5 mg on a p.r.n. basis. 5. Flovent 220 mcg 2 puffs inhalation b.i.d. 6. Vitamin B12 500 mcg daily. 7. Vitamin D3 2000 units daily. LABORATORY DATA OBTAINED DURING THE HOSPITAL STAY: Included a sodium of 140, potassium 3.9, chloride 110, carbon dioxide 26, BUN of 18, creatinine 0.5. Glucose level was 108. HOSPITALIZATION COURSE: Chuck Jackson is a 52-year-old female who was scheduled for an elective endoscopy due to history of problems with losing weight and frequent nausea. The patient has history of hypoglycemia and this is that when she was n.p.o., she was placed on observation in the morning. The patient was presented for direct admission. She was noted to have blood glucose level in the 60s. She was placed on dextrose infusion until her procedure was completed. After discussion with Dr. Valdivia, there were no significant findings noted during the upper endoscopy. Dr. Valdivia would discuss the findings in detail with the patient during a followup appointment in 3 days after discharge. At discharge, the patient's medications are unchanged from admission. She is going to be discharged home with a recommendation to follow up with Dr. Kelly in approximately 4 to 7 days. The patient is going to follow up with Dr. Valdivia in 3 days after this admission. The patient is recommended to follow with Dr. Archibald in approximately 1 to 2 weeks. Physical exam at discharge is unchanged from admission. [id number]/[facility] #: [id number] [facility]
== END 2017-11-16 17:55 | disposition home or self-care (01) ==
LOC: MED 09:00
PROVIDERS: ADMIT Internal Medicine; ATTEND Internal Medicine
PROC: 0DB58ZX Excision of Esophagus, Via Natural or Artificial Opening Endoscopic, Diagnostic (ICD-10-PCS; principal; 2017-11-16)
CPT/HCPCS: 36415; 80048; 81003; 99156; 99157; J2250; J3010

== ENCOUNTER 2018-09-01 10:34 | Emergency (ER) | payer BC ==
[2018-09-01 10:46] VITALS: BP 131/82
[2018-09-01] MEDS ORDERED: Meclizine TAB* 12.5 MG PO ONE (11:25)
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
== END 2018-09-01 12:26 | disposition home or self-care (01) ==
LOC: UCEAST 10:34
DX: S09.90XA Unspecified injury of head, initial encounter (principal); W22.8XXA Striking against or struck by other objects, initial encounter; Y92.9 Unspecified place or not applicable; Z88.5 Allergy status to narcotic agent; Z88.2 Allergy status to sulfonamides; Z87.891 Personal history of nicotine dependence
CPT/HCPCS: 70450; 99212; A9270-GY; G0463

== ENCOUNTER 2020-06-14 16:44 | Inpatient (IN) ==
[2020-06-14] MEDS ORDERED: NS 0.9% 1000 ml BAG 1,000 ML IV ONE (16:57)
[2020-06-14] MEDS ORDERED: Morphine 10 MG/ML VIAL (1 ml) IV ONE (16:57)
[2020-06-14 17:18] LABS: ABS Eosinophils 0.1 10^3/ul (0-0.6); ABS Monocytes 0.3 10^3/ul (0-0.8); ABS Neutrophils 2.5 10^3/ul (1.5-7.7); Eosinophil % 1.3 %; Hematocrit 39 % (35-47); Lymphocyte % 40.1 %; Mean Corpuscular HGB Conc 33 g/dL (31-36); Mean Corpuscular Hemoglobin 29 pg (27-31); Mean Corpuscular Volume 87 fL (80-97); Mean Platelet Volume 9.7 fL (7.4-10.4); Nucleated Red Blood Cells % 0.1; Platelet Count 147 10^3/uL (150-450); Red Blood Count 4.54 10^6 /uL (3.70-4.87); Red Cell Distribution Width 13 % (10-15); White Blood Count 4.9 10^3/uL (3.5-10.8)
[2020-06-14 17:41] LABS: Albumin 3.9 g/dL (3.2-5.2); Albumin/Globulin Ratio 1.8 (1-3); BUN/Creatinine Ratio 26.6 (8-20); Calcium 8.6 mg/dL (8.6-10.3); EGFR African American 116.6 (>60); EGFR Non-African American 96.3 (>60); Globulin 2.2 g/dL (2-4); Potassium 3.8 mmol/L (3.5-5.0); Total Bilirubin 0.4 mg/dL (0.2-1.0); Total Protein 6.1 g/dL (6.4-8.9)
[2020-06-14] MEDS ORDERED: Ondansetron 4 mg VIAL 2 MG/ML 2 ml VIAL IV ONE (17:43)
[2020-06-14] MEDS ORDERED: Prochlorperazine 5 mg/ml 2 ml VIAL (10 mg) IV ONE (18:40)
[2020-06-14] MEDS ORDERED: Ondansetron 4 mg VIAL 2 MG/ML 2 ml VIAL IV PRN (20:07)
[2020-06-14] MEDS ORDERED: Magnesium Hydroxide LIQ 30 ML UDC PO PRN (20:18)
[2020-06-14] MEDS ORDERED: Senna TAB 8.6 mg TAB PO PRN (20:18)
[2020-06-14] MEDS ORDERED: Polyethylene Glycol 3350 17 GM PACKET PO PRN (20:18)
[2020-06-14 23:32] LABS: Urine Appearance Clear; Urine Bilirubin Negative (Negative); Urine Blood 1+ (Negative); Urine Color Yellow; Urine Glucose Negative (Negative); Urine Ketones Trace (Negative); Urine Nitrite Negative (Negative); Urine Protein Negative (Negative); Urine Urobilinogen Negative (Negative)
[2020-06-14 23:36] LABS: Urine Bacteria 1+ (Absent); Urine Red Blood Cell Trace(0-2/hpf) (Absent); Urine White Blood Cell Trace(0-5/hpf) (Absent)
[2020-06-15] MEDS: Morphine 2 MG/ML SYRINGE IV PRN ×3 (04:57→10:53)
[2020-06-15] MEDS: NS 0.9% 1000 ml BAG 1,000 ML IV SCH ×3 (05:00→19:04)
[2020-06-15 08:02] LABS: ABS Lymphocytes 1.1 10^3/ul (1.0-4.8); ABS Monocytes 0.3 10^3/ul (0-0.8); ABS Neutrophils 3.2 10^3/ul (1.5-7.7); Eosinophil % 0.6 %; Hematocrit 40 % (35-47); Hemoglobin 12.9 g/dL (12.0-16.0); Lymphocyte % 23.1 %; Mean Corpuscular HGB Conc 33 g/dL (31-36); Mean Corpuscular Hemoglobin 29 pg (27-31); Mean Corpuscular Volume 87 fL (80-97); Mean Platelet Volume 9.6 fL (7.4-10.4); Platelet Count 116 10^3/uL (150-450); Red Blood Count 4.53 10^6 /uL (3.70-4.87); Red Cell Distribution Width 14 % (10-15); White Blood Count 4.7 10^3/uL (3.5-10.8)
[2020-06-15 08:13] LABS: Calcium 8.7 mg/dL (8.6-10.3); EGFR African American 118.7 (>60); EGFR Non-African American 98.1 (>60); Potassium 3.9 mmol/L (3.5-5.0)
[2020-06-15 08:15] LABS: INR 1.14 (0.82-1.09)
[2020-06-15] MEDS ORDERED: ceFAZolin 2 GM PREMIX 2 GM/50 ML BAG ONE (12:11)
[2020-06-15] MEDS ORDERED: Dexamethasone IV 4 MG/ML VIAL 1 ml VIAL IV SLOW PU ONE (12:28)
[2020-06-15] MEDS ORDERED: Famotidine IV 10 MG/ML 2 ml VIAL (20 mg) IV ONE (12:29)
[2020-06-15] MEDS ORDERED: Famotidine IV 10 MG/ML 2 ml VIAL (20 mg) ONE (12:31)
[2020-06-15] MEDS ORDERED: Dexamethasone IV 4 MG/ML VIAL 1 ml VIAL ONE (12:31)
[2020-06-15] MEDS ORDERED: Levalbuterol 0.63MG/3ML NEB UNIT OF USE INH ONE ×2 (12:39→12:44)
[2020-06-15] MEDS ORDERED: HYDROmorphone 1 MG/1 ML SYRINGE ONE ×2 (13:19→15:42)
[2020-06-15] MEDS ORDERED: Propofol 10 MG/ML 20 ML BTL ONE (13:19)
[2020-06-15] MEDS ORDERED: Glycopyrrolate IV 0.2 MG/ML 1 ML VIAL ONE (13:20)
[2020-06-15] MEDS ORDERED: fentaNYL 100 mcg/2 ml 50 MCG/ML VIAL ONE (13:20)
[2020-06-15] MEDS ORDERED: Midazolam 2 mg/2 ml VIAL 1 mg/ml 2 ml VIAL (2 mg) ONE (13:20)
[2020-06-15] MEDS ORDERED: Ondansetron 4 mg VIAL 2 MG/ML 2 ml VIAL ONE (13:20)
[2020-06-15] MEDS ORDERED: Rocuronium 50 mg VIAL 10 mg/ml 5 ml VIAL (50 mg) ONE (13:20)
[2020-06-15] MEDS ORDERED: Lidocaine 2% PF 5 ML VIAL ONE (13:21)
[2020-06-15] MEDS ORDERED: Phenylephrine 40 mcg/mL 10mL (400mcg) SYRINGE ONE (13:56)
[2020-06-15] MEDS ORDERED: EPHEDrine (Pressors) 50 MG/ML VIAL ONE (13:56)
[2020-06-15] MEDS ORDERED: Ondansetron 4 mg VIAL 2 MG/ML 2 ml VIAL IV PRN (15:30)
[2020-06-15] MEDS ORDERED: Naloxone 0.4 mg VIAL 0.4 mg/ml 1 ml VIAL IV PRN (15:30)
[2020-06-15] MEDS: HYDROmorphone 1 MG/1 ML SYRINGE IV PRN ×3 (15:43→16:13)
[2020-06-15] MEDS: oxyCODONE/Acetamin 5/325 mg TAB PO PRN ×2 (17:36→21:37)
[2020-06-15] MEDS ORDERED: oxyCODONE/Acetamin 5/325 mg TAB PO PRN (17:49)
[2020-06-15] MEDS: ceFAZolin 1 GM in Dextrose 1 GM/50 ML BAG IVPB SCH (21:38)
[2020-06-16] MEDS: oxyCODONE/Acetamin 5/325 mg TAB PO PRN ×2 (03:10→07:47)
[2020-06-16] MEDS: NS 0.9% 1000 ml BAG 1,000 ML IV SCH (03:12)
[2020-06-16 05:08] LABS: Hematocrit 34 % (35-47); Hemoglobin 11.6 g/dL (12.0-16.0)
[2020-06-16 05:24] LABS: BUN/Creatinine Ratio 20.4 (8-20); Calcium 8.4 mg/dL (8.6-10.3); EGFR African American 158.7 (>60); EGFR Non-African American 131.1 (>60); Potassium 4.1 mmol/L (3.5-5.0)
[2020-06-16] MEDS: ceFAZolin 1 GM in Dextrose 1 GM/50 ML BAG IVPB SCH ×2 (06:27→12:49)
[2020-06-16 11:35] VITALS: BP 141/68
[2020-06-16] MEDS ORDERED: Enoxaparin 40 MG/0.4 ML SYR SUBCUT SCH (12:00)
== END 2020-06-16 13:45 | disposition home health service (06) ==
LOC: ED 16:44 → SSU 22:22
PROVIDERS: ADMIT Internal Medicine; ATTEND Internal Medicine